=== PATIENT | male | born 1975 | race Caucasian/White ===

== ENCOUNTER → 2021-09-02 10:40 | Outpatient (BNVA) | payer OTHER, SELFPAY | PROVIDERS: PCP Internal Medicine; Visit Provider Internal Medicine | DX: H83.3X2 Noise effects on left inner ear (principal) | CPT/HCPCS: 99202 ==

== ENCOUNTER → 2021-09-17 11:10 | Outpatient (BNVA) | payer OTHER, SELFPAY | PROVIDERS: PCP Internal Medicine; Visit Provider Physician Assistant | DX: Z57.0 Occupational exposure to noise (principal); H93.12 Tinnitus, left ear | CPT/HCPCS: 99213 ==

== ENCOUNTER 2022-12-25 01:32 | Emergency (ER) | payer OTHER, SELFPAY ==
--- NOTE | ~2022-12-25 | XR_ITS ---
EXAMINATION: XR WRIST, RIGHT XR HAND, RIGHT CLINICAL INFORMATION: Injury COMPARISON: None available. TECHNIQUE: 4 views of the right hand and wrist FINDINGS: No fracture or dislocation. Alignment is anatomic. Joint spaces are maintained. The carpal rows are well aligned. Soft tissues are unremarkable. XR/XR hand wrist RT IMPRESSION: Normal right hand and wrist.
[2022-12-25 01:33] VITALS: BP 142/94; BP 145/86; PULSE 73; PULSE 76; RESP 10; TEMP 36.7; O2SAT 97; O2SAT 99; BMI 27.2
[2022-12-25 01:41] VITALS: BP 182/102; BP 218/140; PULSE 106; PULSE 130; RESP 20; O2SAT 97; O2SAT 98; BMI 31.9
[2022-12-25 01:55] VITALS: BP 142/83
--- NOTE | 2022-12-25 02:30 | ED_ITS ---
HPI - Extremity Problem General Chief complaint: Extremity Injury, Upper Stated complaint: RIGHT HAND PAIN Time Seen by Provider: 12/25/22 01:42 Source: patient Mode of arrival: ambulatory Limitations: no limitations History of Present Illness HPI Narrative: 47-year-old male presents with acute right wrist pain. Pain happened after possible individual rolled onto right wrist. Pain started immediately. The pain does not radiate. The pain is moderate nature. Worse with movement. There is no numbness or tingling. There has been no swelling. No additional complaints. Related Data Allergies Allergy/AdvReac Type Severity Reaction Status Date / Time No Known Allergies Allergy Unverified 02/13/20 19:04 [No Known Allergies*] Review of Systems Review of Systems: CONSTITUTIONAL: Denies weight loss, fever and chills. HEENT: Denies changes in vision and hearing. RESPIRATORY: Denies SOB and cough. CV: Denies palpitations no CP. GI: Denies abdominal pain, nausea, vomiting and diarrhea. : Denies dysuria and urinary frequency. MSK: + myalgia and joint pain. SKIN: Denies rash and pruritus. NEUROLOGICAL: Denies headache and syncope. PSYCHIATRIC: Denies recent changes in mood. Denies anxiety and depression. All other ROS are negative unless in HPI PMFSH Social History Social History Advance Directives: No Advance Directives Information Provided: No Physical Exam Vital Signs: Vital Signs: Last Vital Signs Temp 98.1 F 12/25/22 01:33 Pulse 106 H 12/25/22 01:41 Resp 20 12/25/22 01:41 BP 142/83 H 12/25/22 01:55 Pulse Ox 98 12/25/22 01:41 O2 Del Method Room Air 12/25/22 01:41 BMI result Body Mass Index 31.9 GEN: Well developed, no acute distress, alert, oriented HEENT: Normocephalic, atraumatic, normal external ears, nose appears normal Eyes: Normal to appearance Neck: Supple, no lymphadenopathy Respiratory: Talks in complete sentences, no respiratory distress Extremities: No clubbing cyanosis or edema, no joint effusion, no ecchymoses, tenderness throughout the entire right wrist joint, neurovascularly intact Neurologic: No focal neurologic deficits, cranial nerves 2-12 intact, gait normal Skin: No rash Course Course Course Narrative: X-ray was negative for acute traumatic injury. Suspect sprain or strain or contusion. Will offer patient's splint for comfort. Can follow-up with orthopedics as needed. Medical Decision Making Medical Decision Making [facility] Narrative: Patient presents with acute traumatic wrist pain. Exam does not reveal any deformities. Neurovascular intact. Will obtain an x-ray to rule out fracture. Differential diagnosis includes fracture, contusion, sprain, strain Differential Diagnosis Differential Diagnoses: The differential diagnosis associated with the presentation includes (See above) Independent Interpretation I performed an independent interpretation of an: Plain X-Ray (Right wrist: No acute traumatic injury) Prescription Management I considered prescription management with: Pain Medication Discharge Plan Discharge Clinical Impression: Sprain and strain of wrist Patient Disposition: Home, Self-Care Instructions: Wrist Injury (ED), Wrist Sprain (ED) Referrals: Emily Sierra MD [Physician] - 5 days (if needed)
--- NOTE | 2022-12-25 02:44 | PC.NURSE ---
pt calm and cooperative. pt refused wrist splint per dr gongora. pt ambulatory at discharge. cms intact. pt work related forms completed by provider. pt provided with discharge plan. pt verbalized understanding of discharge plan
== END 2022-12-25 02:50 | disposition home or self-care (01) ==
PROVIDERS: Emergency Provider Emergency Medicine; PCP Internal Medicine
DX: S63.501A Unspecified sprain of right wrist, initial encounter (principal); M25.531 Pain in right wrist; W50.2XXA Accidental twist by another person, initial encounter; Y93.9 Activity, unspecified; Y92.9 Unspecified place or not applicable; Y99.9 Unspecified external cause status
CPT/HCPCS: 73110; 73130; 99284

== ENCOUNTER 2023-08-31 11:00 | Outpatient (RCR) | payer OTHER, SELFPAY | END 2023-08-31 11:31 | disposition home or self-care (01) | LOC: HO.PTCHIC 11:00 | PROVIDERS: PCP Internal Medicine; Visit Provider Physician Assistant | DX: S43.431D Superior glenoid labrum lesion of right shoulder, subsequent encounter (principal) | CPT/HCPCS: 97110; 97140; 97161 ==